=== PATIENT | female | born 1970 | race Caucasian/White ===

== ENCOUNTER 2020-08-11 08:47 | Emergency (ER) | payer SELFPAY ==
--- NOTE | 2020-08-11 09:21 | ER Document Report ---
ED Medical Screen (RME) - General Chief Complaint: Neck Swelling Stated Complaint: NECK SWELLING Time Seen by Provider: 08/11/20 09:16 Notes: 49-year-old female with chief complaint of swelling to the left side of the neck. She states this has been there for almost a year but over the past several weeks she has noticed increased discomfort and increased difficulty swallowing. She denies difficulty breathing, fever/chills, sore throat. She denies any other complaints. - Related Data Allergies/Adverse Reactions: codeine Allergy (Intermediate, Verified 08/11/20 09:16) Nausea Physical Exam - Vital signs Vitals: Pulse Resp BP Pulse Ox 82 16 151/93 H 98 08/11/20 08:55 08/11/20 08:55 08/11/20 08:55 08/11/20 08:55 - HEENT Pharynx: Other - There is swelling to the left side of the neck which is very large although there is no erythema, warmth, severe tenderness. Oropharyngeal exam unremarkable. Unremarkable exam otherwise Course - Re-evaluation Re-evalutation: I have greeted and performed a rapid initial assessment of this patient. A comprehensive ED assessment and evaluation of the patient, analysis of test results and completion of the medical decision making process will be conducted by additional ED providers. - Vital Signs Vital signs: Temp Pulse Resp BP Pulse Ox 82 16 151/93 H 98 08/11/20 08:55 08/11/20 08:55 08/11/20 08:55 08/11/20 08:55
[2020-08-11 09:47] LABS: ABSOLUTE EOSINOPHILS # (AUTO) 0.3 10^3/uL (0.0-0.6); ABSOLUTE LYMPHOCYTES (AUTO) 1.6 10^3/uL (0.5-4.7); ABSOLUTE MONOCYTES (AUTO) 0.5 10^3/uL (0.1-1.4); ABSOLUTE NEUT (AUTO) 4.7 10^3/uL (1.7-8.2); BASOPHILS % (AUTO) 0.6 % (0-2); HEMATOCRIT 43.2 % (36.0-47.0); HEMOGLOBIN 14.4 g/dL (12.0-15.5); LYMPHOCYTES % (AUTO) 22.2 % (13-45); MEAN CORPUSCULAR HEMOGLOBIN 29.6 pg (27.0-33.4); MEAN CORPUSCULAR HGB CONC 33.4 g/dL (32.0-36.0); MEAN CORPUSCULAR VOLUME 89 fl (80-97); MONOCYTES % (AUTO) 6.5 % (3-13); PLATELET COUNT 261 10^3/uL (150-450); RED BLOOD COUNT 4.88 10^6/uL (3.72-5.28); RED CELL DISTRIBUTION WIDTH 13.9 % (11.5-14.0); SEGMENTED NEUTROPHILS % (AUTO) 66.7 % (42-78); TOTAL CELLS COUNTED % (AUTO) 100 %; WHITE BLOOD COUNT 7.1 10^3/uL (4.0-10.5)
[2020-08-11 10:04] LABS: ANION GAP 10 (5-19); BLOOD UREA NITROGEN 20 mg/dL (7-20); CALCIUM 10.3 mg/dL (8.4-10.2); CARBON DIOXIDE 29 mmol/L (22-30); CHLORIDE 102 mmol/L (98-107); GLUCOSE 184 mg/dL (75-110); POTASSIUM 4.5 mmol/L (3.6-5.0)
--- NOTE | 2020-08-11 10:25 | ER Document Report ---
ED General - General Chief Complaint: Neck Swelling Stated Complaint: NECK SWELLING Time Seen by Provider: 08/11/20 09:16 Primary Care Provider: KRISSY LI MD [ACTIVE STAFF] - Follow up tomorrow MONTSE STOUT MD [COMMUNITY BASED STAFF] - Follow up tomorrow Notes: Patient is a 49-year-old female that comes to the Emergency Department with chief complaint of swelling to the left side of the neck. She states this has been there for almost a year but over the past several weeks she has noticed increased discomfort and increased difficulty swallowing. She denies difficulty breathing, fever/chills, sore throat. She denies any other complaints. She denies smoking. Past medical history of hypertension and type 2 diabetes. She is [place] the [place]. She still states that she is able to eat and drink without difficulty but she is noticing her symptoms changing. - Related Data Allergies/Adverse Reactions: codeine Allergy (Intermediate, Verified 08/11/20 09:16) Nausea Home Medications: prilosec, gabapentin, jardiance, metformin, ferrous sulfate, lipitor, lisinopril. prn immodium, ibuprofen, benadryl Past Medical History - General Information source: Patient - Social History Smoking Status: Never Smoker Chew tobacco use (# tins/day): No Frequency of alcohol use: None Drug Abuse: None Lives with: Family Family History: Reviewed & Not Pertinent Patient has homicidal ideation: No Endocrine Medical History: Reports: Hx Diabetes Mellitus Type 2 GI Medical History: Reports: Hx Gastroesophageal Reflux Disease Past Surgical History: Reports: Hx Abdominal Surgery - Immunizations Immunizations up to date: Yes Hx Diphtheria, Pertussis, Tetanus Vaccination: Yes Review of Systems - Review of Systems Constitutional: No symptoms reported EENT: See HPI Cardiovascular: No symptoms reported Respiratory: No symptoms reported Gastrointestinal: No symptoms reported Genitourinary: No symptoms reported Female Genitourinary: No symptoms reported Musculoskeletal: No symptoms reported Skin: No symptoms reported Hematologic/Lymphatic: No symptoms reported Neurological/Psychological: No symptoms reported Physical Exam - Vital signs Vitals: Pulse Resp BP Pulse Ox 82 16 151/93 H 98 08/11/20 08:55 08/11/20 08:55 08/11/20 08:55 08/11/20 08:55 - Notes Notes: GENERAL: Alert, interacts well. No acute distress. HEAD: Normocephalic, atraumatic. EYES: Pupils equal, round, and reactive to light. Extraocular movements intact. ENT: Oral mucosa moist, tongue midline. Oropharynx unremarkable. Airway patent. Nares patent, sinuses non-tender, ear canals unremarkable, TM's intact. NECK: Full range of motion. There is a large firm mass mainly over the left mid neck with swelling around to the right side as well. I cannot palpate any induration, fluctuance, or obvious lymph nodes. Patient swallows without difficulty. LUNGS: Clear to auscultation bilaterally, no wheezes, rales, or rhonchi. No respiratory distress. Non-tender chest wall. HEART: Regular rate and rhythm. No murmur ABDOMEN: Soft, non-tender. Non-distended. EXTREMITIES: Moves all 4 extremities spontaneously. No edema, normal radial and dorsalis pedis pulses bilaterally. No cyanosis. BACK: no cervical, thoracic, lumbar midline tenderness. No saddle anesthesia, normal distal neurovascular exam. Moves all extremities in full range of motion. NEUROLOGICAL: Alert and oriented x3. Normal speech. Cranial nerves II through XII grossly intact. Strength 5/5 in all extremities. PSYCH: Normal affect, normal mood. SKIN: Warm, dry, normal turgor. No rashes or lesions noted. Course - Re-evaluation Re-evalutation: Patient with a very enlarged area stress on the left side of the neck on exam. This is firm, nontender, not erythematous, not abnormally warm. She is talkative, well-appearing, handling her secretions well, no respiratory difficul ty, no difficulty with position changes. No signs of airway compression. CBC and chemistry unremarkable. CT of the soft tissues of the neck with contrast shows large mass that appears to be thyroid in origin. I discussed with Dr. Quinonez, recommends ENT or surgical consult with primary care follow-up. Patient is out of state and does not have insurance back home either. We do not have ENT video production engineer. As result I called and spoke with general surgery on-call, Dr. Cross. He recommends the patient can follow-up in the surgical clinic with either Dr. Li or Dr. Curtis for this. I discussed the patient and she states that she will do this without fail. I discussed return precautions. Patient states understanding and agreement. Stable and without any complaints at time of discharge. - Vital Signs Vital signs: Temp Pulse Resp BP Pulse Ox 98.6 F 76 20 133/81 H 96 08/11/20 12:46 08/11/20 12:46 08/11/20 12:46 08/11/20 12:46 08/11/20 12:46 - Laboratory Results Result Diagrams: 08/11/20 09:35 08/11/20 09:35 Laboratory Results Interpreted: 08/11/20 09:35 Glucose 184 H Calcium 10.3 H Critical Laboratory Results Reviewed: No Critical Results - Radiology Results Critical Radiology Results Reviewed: No Critical Results Discharge - Discharge Clinical Impression: Neck swelling, Thyroid mass Condition: Stable Disposition: HOME, SELF-CARE Additional Instructions: Your thyroid is very enlarged with a mass that needs to be evaluated in close follow-up. I spoke with general surgery on-call Dr. Cross, please be seen in the clinic, call the clinic tomorrow for close follow-up and additional management. Also please call the listed primary care referral for your additional testing. Return if you worsen including difficulty swallowing or breathing or any other concerning or worsening symptoms. Referrals: MONTSE STOUT MD [COMMUNITY BASED STAFF] - Follow up tomorrow KRISYS LI MD [ACTIVE STAFF] - Follow up tomorrow
--- NOTE | 2020-08-11 11:17 | RADIOLOGY REPORT (SQ) ---
EXAM DESCRIPTION: CT SOFT TISSUE NECK WITH IMAGES COMPLETED DATE/TIME: 08/11/2020 10:49 am REASON FOR STUDY: left sided neck swelling COMPARISON: None. TECHNIQUE: Post IV contrasted scanning from skull base through lung apices with review of bone, soft tissue and lung windows. Reconstructed coronal and sagittal MPR images reviewed. All images stored on PACS. All CT scanners at this facility use dose modulation, iterative reconstruction, and/or weight based d osing when appropriate to reduce radiation dose to as low as reasonably achievable (ALARA). [facility]: Dose Right [facility]: CareDose [facility]: Dose Right [facility]: Teradose 4D [facility]: Relead CONTRAST TYPE AND DOSE: contrast/concentration: Isovue 350.00 mmol/ml; Total Contrast Delivered: 75. 0 ml; Total Saline Delivered: 55.0 ml RENAL FUNCTION: GFR > 60. RADIATION DOSE: CT Rad equipment meets quality standard of care and radiation dose reduction techniq ues were employed. CTDIvol: 17.8 mGy. DLP: 529 mGy-cm. . LIMITATIONS: None. FINDINGS: SKULL BASE: Intact. MAJOR SALIVARY GLANDS: No solid or cystic masses. No inflammatory changes. LYMPHADENOPATHY: No adenopathy. MUCOSAL MASSES OR ASYMMETRY: No mucosal masses or asymmetry. LARYNX/CORDS: No abnormal findings. VASCULAR STRUCTURES: The major vessels are patent. LUNG APICES: Clear. BONES: Intact. THYROID: Heterogeneous enlarged gland which extends substernal in the left lobe displacing the trache a to right of midline. 6.0 by 11.3 cm AP by craniocaudal diameter. PARANASAL SINUSES: Polyp or retention cysts in the bilateral maxillary sinuses. OTHER: No other significant finding. IMPRESSION: Marked thyromegaly. TECHNICAL DOCUMENTATION: JOB ID: [id number] Quality ID # [id number]: Final reports with documentation of one or more dose reduction techniques (e.g., Au tomated exposure control, adjustment of the mA and/or kV according to patient size, use of iterative reconstruction technique) 2010 [employer]- All Rights Reserved Reading location - IP/workstation name: [email or web address]
[2020-08-11 12:47] VITALS: BP 133/81
== END 2020-08-11 12:51 | disposition home or self-care (01) ==
LOC: ER 08:47
DX: E01.0 Iodine-deficiency related diffuse (endemic) goiter (principal); R13.10 Dysphagia, unspecified; I10 Essential (primary) hypertension; K21.9 Gastro-esophageal reflux disease without esophagitis; E11.9 Type 2 diabetes mellitus without complications; Z79.84 Long term (current) use of oral hypoglycemic drugs; Z79.899 Other long term (current) drug therapy; Z79.1 Long term (current) use of non-steroidal anti-inflammatories (NSAID); Z88.6 Allergy status to analgesic agent; Z88.5 Allergy status to narcotic agent
CPT/HCPCS: 36415; 70491; 80048; 85025; 99285